=== PATIENT | female | born 1995 | race American Indian/Alaskan Native ===

== ENCOUNTER 2016-11-23 19:58 | Emergency (ER) | payer OTHER ==
[2016-11-23 20:06] VITALS: BP 102/68; PULSE 84; RESP 16; TEMP 97.5; O2SAT 100
--- NOTE | 2016-11-23 20:20 | C.PDOC ---
History Of Present Illness 21 year old patient, with a past medical history of bronchitis, presents to the ED complaining of feeling anxious. Patient states she has been smoking black and milds and has been drinking a lot of caffeinated soda. Patient states she had similar symptoms about a year ago and was evaluated at [facility] with a normal work up. Patient denies any history of anxiety or any other complaints. Time Seen by Provider: 11/23/16 20:11 Chief Complaint (Nursing): Shortness Of Breath History Per: Patient History/Exam Limitations: no limitations Onset/Duration Of Symptoms: Days (few days) Current Symptoms Are (Timing): Still Present Severity: Mild Pain Scale Rating Of: 3 Recent travel outside of the [place]: No Additional History Per: Family Past Medical History Reviewed: Historical Data, Nursing Documentation, Vital Signs Vital Signs: Last Vital Signs Temp 97.5 F L 11/23/16 20:01 Pulse 84 11/23/16 20:30 Resp 16 11/23/16 20:30 BP 102/68 11/23/16 20:30 Pulse Ox 100 11/23/16 20:37 - Medical History PMH: Bronchitis Family History: States: Unknown Family Hx - Social History Hx Alcohol Use: Yes Hx Substance Use: No - Immunization History Hx Tetanus Toxoid Vaccination: No Hx Influenza Vaccination: No Hx Pneumococcal Vaccination: No Review Of Systems Except As Marked, All Systems Reviewed And Found Negative. Cardiovascular: Negative for: Chest Pain Respiratory: Negative for: Shortness of Breath Gastrointestinal: Negative for: Nausea, Vomiting Psych: Positive for: Anxiety Physical Exam - Physical Exam Appears: Non-toxic, No Acute Distress Skin: Warm, Dry Head: Atraumatic, Normacephalic Eye(s): bilateral: Normal Inspection, EOMI Oral Mucosa: Moist Neck: Normal ROM, Supple Chest: Symmetrical, Other (no digitally or positionally reproducible pain in front of the mother) Cardiovascular: Rhythm Regular Respiratory: Normal Breath Sounds, No Rales, No Rhonchi, No Wheezing Gastrointestinal/Abdominal: Soft, No Tenderness Back: Normal Inspection, No CVA Tenderness Extremity: Normal ROM Neurological/Psych: Oriented x3, Normal Speech, Normal Cognition Gait: Steady ED Course And Treatment O2 Sat by Pulse Oximetry: 100 (room air) Pulse Ox Interpretation: Normal Progress Note: Work up deferred by mother. Medical Decision Making Medical Decision Making: mild anxiety, clear lungs prob related to smoking Black and Mild cigars, drinking too much caffeinated soda h/o anxiety no w/u required reassured. Disposition Doctor Will See Patient In The: Office Counseled Patient/Family Regarding: Studies Performed, Diagnosis - Disposition Referrals: [facility] [Outside] [facility] [Outside] Disposition: HOME/ ROUTINE Disposition Time: 20:19 Condition: GOOD Additional Instructions: curb your use of caffeinated beverages and cigars- very strong stimulants which can make you feel anxious and make baseline anxiety worse. Instructions: Anxiety (ED), Caffeine Use (ED) - Clinical Impression Clinical Impression: Anxiety - Scribe Statement The provider has reviewed the documentation as recorded by the Scribe Melinda Lu Provider Attestation: All medical record entries made by the Scribe were at my direction and personally dictated by me. I have reviewed the chart and agree that the record accurately reflects my personal performance of the history, physical exam, medical decision making, and the department course for this patient. I have also personally directed, reviewed, and agree with the discharge instructions and disposition.
== END 2016-11-23 20:39 | disposition home or self-care (01) ==
LOC: C.ER 19:58
DX: F41.9 Anxiety disorder, unspecified (principal)